=== PATIENT | female | born 1950 | race African-American/Black ===

== ENCOUNTER 2017-06-14 07:08 | Outpatient (CLI) | payer OTHER | END 2017-06-14 07:09 | disposition home or self-care (01) | LOC: BICULT 07:08 | PROVIDERS: ATTEND Physician Assistant Medical | DX: D24.1 Benign neoplasm of right breast (principal) | CPT/HCPCS: 19083; 88305; G0206-RT ==

== ENCOUNTER 2018-04-22 10:18 | Emergency (ER) | payer MEDICARE, OTHER ==
[2018-04-22 11:08] LABS: #Eosinphils 0.1 thou/uL (0.0-0.7); #Lymphocytes 1.1 thou/uL (1.20-3.40); #Monocytes 0.3 thou/uL (0.11-0.59); #Neutrophils 3.1 thou/uL (1.40-6.50); %Basophils 0.9 % (0.0-1.0); %Eosinophils 2.3 % (0.0-10.0); %Lymphocytes 23.7 % (21.0-51.0); %Monocytes 5.6 % (0.0-10.0); %Neutrophils 67.5 % (42.0-75.0); Hemoglobin 12.3 g/dL (12.0-16.0); Mean Corpuscular HGB CONC 32.4 g/dL (32.0-36.0); Mean Corpuscular Hemoglobin 26.8 pg (27.0-31.0); Mean Corpuscular Volume 82.8 fL (78.0-98.0); Mean Platelet Volume 8.4 fL (7.4-10.4); Platelet Count 162 thou/uL (130-400); RBC Distribution Width 13.2 % (11.5-14.5); White Blood Cell (WBC) Count 4.6 thou/uL (4.8-10.8)
[2018-04-22 11:31] LABS: ALT (SGPT) 9 U/L (8-55); AST (SGOT) 10 U/L (5-34); Albumin 3.8 g/dL (3.4-4.8); Alkaline Phosphatase 90 U/L (40-150); Anion Gap 9 mmol/L (10-20); BUN (Urea Nitrogen) 12 mg/dL (9.8-20.1); Bilirubin, Total 0.5 mg/dL (0.2-1.2); Calc. Creatinine Clearance 0 mL/min (70-130); Calcium 9.2 mg/dL (7.8-10.44); Carbon Dioxide 29 mmol/L (23-31); Chloride 107 mmol/L (98-107); Estimated GFR-MDRD 80; Globulin 3.7 g/dL (2.4-3.5); Glucose 95 mg/dL (80-115); Potassium 3.6 mmol/L (3.5-5.1); Protein, Total 7.5 g/dL (6.0-8.3); Sodium 141 mmol/L (136-145)
[2018-04-22 11:35] LABS: CKMB 1.2 ng/mL (0-6.6); Troponin I Less than 0.010 ng/mL (< 0.028)
[2018-04-22] MEDS ORDERED: Ketorolac Tromethamine 30 MG/ML VIAL ONE (11:46)
--- NOTE | 2018-04-22 12:31 | RAD ---
THREE VIEWS LEFT SHOULDER: INDICATION: Pain. FINDINGS: There is osteoarthritis without fracture or dislocation. IMPRESSION: No acute osseous abnormality of the left shoulder. POS: [facility]
--- NOTE | 2018-04-22 12:33 | RAD ---
CHEST 2 VIEWS: HISTORY: Pain. COMPARISON: None. FINDINGS: Normal cardiac silhouette. Pulmonary vessels and hilum are normal. Costophrenic angles are clear. No consolidation or mass. No pneumothorax or osseous abnormalities. IMPRESSION: No acute cardiopulmonary process. POS: [facility]
--- NOTE | 2018-04-28 13:41 | EKG ---
Test Reason : LEFT SHOULDER PAIN Blood Pressure : / mmHG Vent. Rate : 068 BPM Atrial Rate : 068 BPM P-R Int : 164 ms QRS Dur : 098 ms QT Int : 446 ms P-R-T Axes : 081 004 046 degrees QTc Int : 474 ms Normal sinus rhythm Normal ECG Confirmed by ORQUIDEA PEREZ DO ([id number]), story editor MICHELLE JENKINS ([id number]) on 04/28/2018 1:41:32 PM Referred By: CHRIS Confirmed By:ORQUIDEA PEREZ DO
== END 2018-04-22 12:32 | disposition home or self-care (01) ==
LOC: ERS 10:18
DX: M25.512 Pain in left shoulder (principal); I10 Essential (primary) hypertension
CPT/HCPCS: 36415; 71046; 80053; 82553; 84484; 85025; 93005; 96372; J1885

== ENCOUNTER 2018-05-29 15:28 | Outpatient (CLI) | payer MEDICARE ==
--- NOTE | 2018-05-29 16:19 | RAD ---
PA AND LATERAL CHEST: History: Reactive airway disease, cough for a couple of days. Comparison: 04-22-18 FINDINGS: The heart size is borderline in size. The aorta is tortuous. The lungs are clear of infiltrates. Ther e are arthritic changes of the spine. IMPRESSION: Borderline heart size. No active intrathoracic disease. POS: [facility]
== END 2018-05-29 15:29 | disposition home or self-care (01) ==
LOC: BICRAD 15:28
PROVIDERS: ATTEND Internal Medicine
DX: J45.50 Severe persistent asthma, uncomplicated (principal)
CPT/HCPCS: 71046

== ENCOUNTER 2018-11-12 14:21 | Outpatient (CLI) | payer MEDICARE ==
--- NOTE | 2018-11-12 14:39 | RAD ---
RIGHT KNEE 2 VIEWS: HISTORY: Right knee pain FINDINGS: Degenerative changes are seen manifested by osteophyte formation and joint space narrowing in all 3 c ompartments. No fracture, dislocation or bony destruction is identified. No joint effusion is identified. IMPRESSION: Osteoarthritis of the right knee.
--- NOTE | 2018-11-12 14:40 | RAD ---
Exam: XR Knee Lt 2 View HISTORY: Right knee pain COMPARISON: None FINDINGS: There is tricompartment osteophytosis with mild narrowing of the medial joint compartment and patello femoral joint. No acute fracture, dislocation, or other acute osseous abnormality is identified. IMPRESSION: Osteoarthritis right knee.
== END 2018-11-12 14:22 | disposition home or self-care (01) ==
LOC: BICRAD 14:21
PROVIDERS: ATTEND Internal Medicine
DX: M25.561 Pain in right knee (principal); M25.562 Pain in left knee; M17.0 Bilateral primary osteoarthritis of knee

== ENCOUNTER 2019-05-07 15:14 | Outpatient (CLI) | payer MEDICARE ==
--- NOTE | 2019-05-07 16:04 | MMO ---
Bilateral MAMMO Bilat Screen [facility]. CLINICAL HISTORY: Patient is 68 years old and is seen for screening. The patient has the following family history of breast cancer: sister, at age 63. The patient has a history of cervical cancer at age 44. The patient has a history of right Ultrasound Guided Core Biopsy in June, and right Excisional Biopsy in 1995 - fibroadenoma. VIEWS: The views performed were: bilateral craniocaudal with tomosynthesis and bilateral mediolateral oblique with tomosynthesis. FILMS COMPARED: The present examination has been compared to prior imaging studies performed at [facility] on 03/12/2015, 04/12/2016 and 05/10/2017, and at [facility] on 02/09/2017. This study has been interpreted with the assistance of computer-aided detection. MAMMOGRAM FINDINGS: There are scattered fibroglandular densities. Finding 1: There is a stable mass with associated biopsy clip seen in the sub-areolar region of the right breast. Finding 2: There are stable benign appearing calcifications seen in both breasts. There are no suspicious masses, suspicious calcifications, or new areas of architectural distortion. IMPRESSION: THERE IS NO MAMMOGRAPHIC EVIDENCE OF MALIGNANCY. A ROUTINE FOLLOW-UP MAMMOGRAM IN 1 YEAR IS RECOMMENDED. THE RESULTS OF THIS EXAM WERE SENT TO THE PATIENT. ACR BI-RADS Category 2 - Benign finding MAMMOGRAPHY NOTE: 1. A negative mammogram report should not delay a biopsy if a dominant of clinically suspicious mass is present. 2. Approximately 10% to 15% of breast cancers are not detected by mammography. 3. Adenosis and dense breasts may obscure an underlying neoplasm. Reported by: JENNIFER CHENG MD Electonically Signed: [id number]
== END 2019-05-07 15:15 | disposition home or self-care (01) ==
LOC: BICMAMMO 15:14
PROVIDERS: ATTEND Internal Medicine
DX: Z12.31 Encounter for screening mammogram for malignant neoplasm of breast (principal); Z85.41 Personal history of malignant neoplasm of cervix uteri; Z80.3 Family history of malignant neoplasm of breast
CPT/HCPCS: 77063; 77067

== ENCOUNTER 2020-03-30 13:30 | Outpatient (CLI) | payer MEDICARE ==
--- NOTE | 2020-03-30 13:48 | RAD ---
RADIOGRAPH LEFT ANKLE 3 VIEWS: DATE: 03/30/2020 HISTORY: 69-year-old female with acute, traumatic left ankle pain FINDINGS: Ankle mortise is congruent. There is no evidence of fracture. There is no subluxation or dislocation. There is anterior, lateral, and especially medial, soft tissue swelling. IMPRESSION: 1. No fracture. 2. Soft tissue edema, especially medially
== END 2020-03-30 13:31 | disposition home or self-care (01) ==
LOC: BICRAD 13:30
PROVIDERS: ATTEND Internal Medicine
DX: M25.572 Pain in left ankle and joints of left foot (principal); R60.0 Localized edema

== ENCOUNTER 2021-05-05 14:18 | Outpatient (CLI) | payer MEDICARE | END 2021-05-05 14:19 | disposition home or self-care (01) | LOC: BICMAMMO 14:18 | PROVIDERS: ATTEND Family Medicine | DX: Z12.31 Encounter for screening mammogram for malignant neoplasm of breast (principal); Z80.3 Family history of malignant neoplasm of breast; Z85.41 Personal history of malignant neoplasm of cervix uteri | CPT/HCPCS: 77063; 77067 ==

== ENCOUNTER 2022-05-06 08:53 | Outpatient (CLI) | payer MEDICARE, OTHER | END 2022-05-06 08:54 | disposition home or self-care (01) | LOC: BICMAMMO 08:53 | PROVIDERS: ATTEND Nurse Practitioner Family | DX: Z12.31 Encounter for screening mammogram for malignant neoplasm of breast (principal); Z80.3 Family history of malignant neoplasm of breast; Z85.41 Personal history of malignant neoplasm of cervix uteri | CPT/HCPCS: 77063; 77067 ==

== ENCOUNTER 2023-06-19 10:35 | Outpatient (CLI) | payer OTHER | END 2023-06-19 10:36 | disposition home or self-care (01) | LOC: BICMAMMO 10:35 | PROVIDERS: ATTEND Nurse Practitioner Family | DX: Z12.31 Encounter for screening mammogram for malignant neoplasm of breast (principal); Z80.3 Family history of malignant neoplasm of breast; Z85.41 Personal history of malignant neoplasm of cervix uteri | CPT/HCPCS: 77063; 77067 ==

== ENCOUNTER 2024-02-16 19:35 | Inpatient (IN) | payer OTHER ==
[2024-02-16 20:58] LABS: #Basophils Less than 0.03 10x3/uL (0.0-0.2); %Basophils 0.3 % (0.0-1.0); %Eosinophils 1.7 % (0.0-10.0); %Lymphocytes 12.1 % (21.0-51.0); %Monocytes 6.5 % (0.0-10.0); %Neutrophils 79.1 % (42.0-75.0); Hematocrit 34.6 % (36.0-47.0); Hemoglobin 11.1 g/dL (12.0-16.0); Mean Corpuscular HGB CONC 32.1 g/dL (32.0-36.0); Mean Corpuscular Hemoglobin 26.7 pg (27.0-31.0); Mean Corpuscular Volume 83.2 fL (78.0-98.0); Mean Platelet Volume 10.1 fL (7.4-10.4); Platelet Count 193 10x3/uL (130-400); Red Blood Cell (RBC) Count 4.16 mill/uL (4.20-5.40)
[2024-02-16 21:19] LABS: ALT (SGPT) 25 U/L (8-55); AST (SGOT) 29 U/L (5-34); Albumin 2.9 g/dL (3.4-4.8); Alkaline Phosphatase 79 U/L (40-110); Anion Gap 13 mmol/L (10-20); BUN (Urea Nitrogen) 17 mg/dL (9.8-20.1); Bilirubin, Total 0.6 mg/dL (0.2-1.2); CK (CPK) 674 U/L (29-168); Calc. Creatinine Clearance 0 mL/min (70-130); Calcium 8.7 mg/dL (7.8-10.44); Carbon Dioxide 26 mmol/L (23-31); Chloride 107 mmol/L (98-107); Estimated GFR 92; Glucose 108 mg/dL (83-110); Potassium 3.5 mmol/L (3.5-5.1); Protein, Total 6.9 g/dL (5.8-8.1); Sodium 142 mmol/L (136-145)
[2024-02-16 22:11] LABS: Bilirubin Negative (Negative); Blood, Urine Negative (Negative); CAUTI Indications for Culture Dysuria,urgency,freq; Clarity Clear (Clear); Glucose, Urine (Dipstick) Normal (Negative); Ketone, Urine Negative (Negative); Leukocyte Negative Leu/uL (Negative); Nitrite Negative (Negative); Protein, Urine (Dipstick) 30 mg/dL (Neg-Trace); RBC/HPF 0-3 HPF (0-3); Specific Gravity, Urine 1.025 (1.002-1.036); Squamous Epithelial 0-3 HPF (0-3); Urobilinogen 3 mg/dL (Less than 2); WBC/HPF 0-3 HPF (0-3)
[2024-02-16 22:12] LABS: Bacteria/HPF 1+ HPF (None Seen)
[2024-02-16 22:13] LABS: Urine Culture Reflex No No
[2024-02-16 22:23] LABS: Influenza A by NAA Not Detected (NotDetected); Influenza B by NAA Not Detected (NotDetected); SARS-CoV-2 NAA Rapid Test Not Detected (NotDetected)
[2024-02-17] MEDS ORDERED: Furosemide 40 MG (4 mL) VIAL ONE (01:00)
[2024-02-17] MEDS ORDERED: Lisinopril 20 MG TAB ONE (01:00)
[2024-02-17] MEDS ORDERED: Labetalol HCl 100 MG/20 ML VIAL SLOW IVP PRN (01:21)
[2024-02-17] MEDS ORDERED: hydrALAZINE 20 MG/ML VIAL SLOW IVP PRN (01:21)
[2024-02-17] MEDS ORDERED: Acetaminophen 325 MG TAB PO PRN (01:21)
[2024-02-17] MEDS ORDERED: Acetaminophen 650 MG Suppository PR PRN (01:21)
[2024-02-17 03:10] VITALS: BMI 49.8
[2024-02-17 06:24] LABS: #Basophils Less than 0.03 10x3/uL (0.0-0.2); %Basophils 0.4 % (0.0-1.0); %Eosinophils 2.5 % (0.0-10.0); %Lymphocytes 22.2 % (21.0-51.0); %Monocytes 8.7 % (0.0-10.0); Hematocrit 33.5 % (36.0-47.0); Hemoglobin 10.8 g/dL (12.0-16.0); Mean Corpuscular HGB CONC 32.2 g/dL (32.0-36.0); Mean Corpuscular Hemoglobin 26.8 pg (27.0-31.0); Mean Corpuscular Volume 83.1 fL (78.0-98.0); Platelet Count 181 10x3/uL (130-400); RBC Distribution Width 15.1 % (11.5-14.5); Red Blood Cell (RBC) Count 4.03 mill/uL (4.20-5.40)
[2024-02-17 06:33] LABS: Hemoglobin A1c 5.3 % (4.0-6.0)
[2024-02-17 06:46] LABS: Troponin I 0.031 ng/mL (< 0.028)
[2024-02-17 06:47] LABS: Anion Gap 12 mmol/L (10-20); BUN (Urea Nitrogen) 13 mg/dL (9.8-20.1); Calc. Creatinine Clearance 174 mL/min (70-130); Calcium 8.6 mg/dL (7.8-10.44); Carbon Dioxide 29 mmol/L (23-31); Cardiac Risk 2.7 (Less than 4.5); Chloride 105 mmol/L (98-107); Cholesterol 150 mg/dl (< 200 Desired); Estimated GFR 94; Glucose 94 mg/dL (83-110); HDL Cholesterol 56 mg/dL (>60 Neg Risk); LDL Cholesterol, Calculated 85 mg/dL; Magnesium 1.8 mg/dL (1.6-2.6); Sodium 143 mmol/L (136-145); Triglycerides 45 mg/dL (Less than 150)
[2024-02-17] MEDS: Magnesium 2 GM/50 ML(in water) 2 GM in Premix 1 BAG IVPB SCH (08:59)
[2024-02-17] MEDS: Potassium Chloride 20 MEQ TAB PO SCH (09:00)
[2024-02-17] MEDS: Aspirin 81 mg Enteric Coated Tablet PO SCH (09:00)
[2024-02-17] MEDS: Furosemide 40 MG (4 mL) VIAL SLOW IVP SCH (09:00)
[2024-02-17] MEDS: Lisinopril 20 MG TAB PO SCH (09:00)
[2024-02-17] MEDS: dilTIAZem CD 180 MG CAP PO SCH (09:01)
[2024-02-17] MEDS: Atorvastatin Calcium 40 MG TAB PO SCH (20:35)
[2024-02-18 05:00] LABS: #Basophils 0.04 10x3/uL (0.0-0.2); %Basophils 0.7 % (0.0-1.0); %Eosinophils 4.3 % (0.0-10.0); %Lymphocytes 28.1 % (21.0-51.0); %Monocytes 8.7 % (0.0-10.0); %Neutrophils 57.8 % (42.0-75.0); Hematocrit 33.2 % (36.0-47.0); Hemoglobin 10.7 g/dL (12.0-16.0); Mean Corpuscular HGB CONC 32.2 g/dL (32.0-36.0); Mean Corpuscular Hemoglobin 26.3 pg (27.0-31.0); Mean Corpuscular Volume 81.6 fL (78.0-98.0); Mean Platelet Volume 10.8 fL (7.4-10.4); Platelet Count 184 10x3/uL (130-400); RBC Distribution Width 15.1 % (11.5-14.5); Red Blood Cell (RBC) Count 4.07 mill/uL (4.20-5.40)
[2024-02-18 05:20] LABS: Anion Gap 10 mmol/L (10-20); BUN (Urea Nitrogen) 15 mg/dL (9.8-20.1); Calc. Creatinine Clearance 146 mL/min (70-130); Calcium 8.4 mg/dL (7.8-10.44); Carbon Dioxide 31 mmol/L (23-31); Chloride 104 mmol/L (98-107); Estimated GFR 85; Glucose 93 mg/dL (83-110); Potassium 3.3 mmol/L (3.5-5.1); Sodium 142 mmol/L (136-145)
[2024-02-18] MEDS: Potassium Chloride 20 MEQ TAB PO SCH (08:58)
[2024-02-22] MEDS: Potassium Chloride 20 MEQ TAB PO SCH (11:42)
[2024-02-22] MEDS: Polyethylene Glycol 3350 17 GM Packet PO SCH (23:31)
[2024-02-23] MEDS: Polyethylene Glycol 3350 17 GM Packet PO SCH (08:50)
[2024-02-23] MEDS: Senokot S 8.6-50 MG TAB PO SCH (08:50)
[2024-02-23] MEDS: Potassium Chloride 20 MEQ TAB PO SCH (08:51)
[2024-02-23 11:30] VITALS: BP 135/81; TEMP 98.3
== END 2024-02-23 12:10 | DRG 291 ==
LOC: ERS 19:35 → 2NO 02-17 00:27 → OBSVTOIN 02-18 12:57 → T4-A 02-21 18:17
PROVIDERS: ADMIT Student in an Organized Health Care Education/Training Program; ATTEND Hospitalist
DX: I11.0 Hypertensive heart disease with heart failure (principal); I50.33 Acute on chronic diastolic (congestive) heart failure; I69.853 Hemiplegia and hemiparesis following other cerebrovascular disease affecting right non-dominant side; Z68.42 Body mass index [BMI] 45.0-49.9, adult; N39.0 Urinary tract infection, site not specified; E66.01 Morbid (severe) obesity due to excess calories; M25.761 Osteophyte, right knee; E87.6 Hypokalemia; R79.89 Other specified abnormal findings of blood chemistry; R29.6 Repeated falls; Z90.710 Acquired absence of both cervix and uterus; Z71.3 Dietary counseling and surveillance
CPT/HCPCS: 36415; 70551; 71045; 80048; 80053; 80061; 81001; 82550; 83036; 83735; 83880; 84443; 84484; 85025; 93005; 93306; 96361; 96374; 96375; 96376; G0378; J1940; J3475